=== PATIENT | female | born 2000 | race Two or more races ===

== ENCOUNTER 2025-08-27 12:45 | Inpatient (IN) | payer MEDICAID, OTHER ==
[~2025-08-27] VITALS: Ht 170.2 cm; Wt 77.2 kg
--- NOTE | 2025-08-27 13:25 | ED.PDOC ---
History of Present Illness HPI Comments Ms. Woodall is a 24 year old female with PMHx type1 diabetes mellitus and questionable atrial fibrillation, who presents today with chief complaint of lethargy. The patient states she is visiting the area and yesterday her insulin pump "" and she ran out of insulin. She reports that last night she had onset of weakness, nausea, vomiting, and generalized abdominal pain described as cramping, 7/10 intensity, without aggravating or relieving factors. Due persistence of symptoms she was taken by her aunt to the fire department and was subsequently brought by EMS. Per EMT, blood glucose on scene was 298, she was afebrile, tachycardic, with other vitals within normal range. On initial e valuation in the ED, the patient is alert, uncomfortable due to nausea and vomiting, afebrile, tahycardic, with other vitals within normal range. 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: Denies all PAPERHANGER APPRENTICE Hx Family History Family History: Reviewed,noncontributory to illness Social History Smoker: Non-Smoker Alcohol: Denies ETOH Use Drugs: Denies Drug Use Lives In: Home Constitutional: reports: fatigue, weakness; denies: chills, diaphoresis, fever, malaise, sweats EENTM: denies: blurred vision, double vision, mouth pain, nasal discharge, nose congestion Respiratory: denies: cough, hemoptysis, orthopnea, shortness of breath Cardiovascular: denies: chest pain, dizzy spells, diaphoresis, Dyspnea on exertion, edema, irregular heart beat, left arm pain, lightheadedness, palpitations Gastrointestinal: reports: abdominal pain, nausea, poor appetite, poor fluid intake, vomiting; denies: abdomen distended, blood streaked bowels, constipated, diarrhea, dysphagia, difficulty swallowing, hematemesis, melena, rectal bleeding Genitourinary: denies: burning, dysuria, flank pain, frequency, hematuria, incontinence, pain, urgency Neurological: reports: dizziness; denies: fainting, headache, numbness, paresthesia, pre-existing deficit, seizure, tremors, weakness Musculoskeletal: denies: back pain, joint pain, joint swelling, muscle pain, muscle stiffness, neck pain Physical Exam General Appearance: Moderate Distress HEENT: Pale Conjuntivae (L), Pale Conjuntivae (R), PERRL/EOMI, Pharynx Normal Neck: Full Range of Motion, Non-Tender, Normal Inspection Respiratory: Chest Non-Tender, Lungs Clear, No Accessory Muscle Use, No Respiratory Distress, Normal Breath Sounds Cardiovascular: No Edema, No Murmur, Normal Peripheral Pulses, Tachycardia Breast Exam: Deferred Gastrointestinal: Other (Abdomen nondistended, normal bowel sounds, soft, pain to generalized palpation no guarding or rebound tenderness, no palpable masses.) Genitalia: Deferred Pelvic: Deferred Rectal: Deferred Extremities: Normal capillary refill, Normal inspection, Normal range of motion, Non-tender, No pedal edema Neurologic: Alert Cerebellar Function: NOT DONE Reflexes: NOT DONE Skin: Normal Color Peripheral Pulses: 3+ dorsalis pedis (R), 3+ dorsalis pedis (L) Lymphatic: Other (No cervical adenopathy ) Was a procedure done? Was a procedure done?: No EKG EKG : Pulse Rate (adult): 115 [place]: Normal Cardiac Rhythm: ST Block: None ST: Nonsp Differential Dx Considerations may include: DKA, HHS, acute gastroenteritis, acute enterocolitis, appendicitis, cholecystitis, food poisoning, electrolyte imbalance, dehydration X-Ray, Labs, Meds, VS Vital Signs Date Time Temp Pulse Resp B/P (MAP) Pulse Ox O2 Delivery O2 Flow Rate FiO2 08/27/25 12:50 98.2 101 16 112/72 95 98.2 Lab Test 08/27/25 13:43 08/27/25 13:42 Range/Units White Blood Count 17.7 H 4.4-10.8 10^3/uL Red Blood Count 5.57 H 4.0-5.20 10^6/uL Hemoglobin 16.4 H 12.2-16.2 g/dL Hematocrit 52.3 H 36.0-46.0 % Mean Corpuscular Volume 94.0 80.0-100.0 fL Mean Corpuscular Hemoglobin 29.5 28.0-32.0 pg Mean Corpuscular Hemoglobin Concent 31.4 L 32.0-36.0 g/dL Red Cell Distribution Width 13.7 11.8-14.3 % Platelet Count 407 140-450 10^3/uL Mean Platelet Volume 9.1 6.9-10.8 fL Neutrophils (%) (Auto) 85.0 H 37.0-80.0 % Lymphocytes (%) (Auto) 12.1 10.0-50.0 % Monocytes (%) (Auto) 2.5 0.0-12.0 % Eosinophils (%) (Auto) 0.0 0.0-7.0 % Basophils (%) (Auto) 0.4 0.0-2.0 % Neutrophils # (Auto) 15.0 H 1.6-8.6 10 ^3/uL Lymphocytes # (Auto) 2.1 0.4-5.4 10 ^3/uL Monocytes # (Auto) 0.4 0-1.3 10 ^3/uL Eosinophils # (Auto) 0 0-0.8 10 ^3/uL Basophils # (Auto) 0.1 0-0.2 10 ^3/uL Nucleated Red Blood Cells 0.1 % Sodium Level 136 136-145 mmol/L Potassium Level 5.8 *H 3.5-5.1 mmol/L Chloride Level 103 98-107 mmol/L Carbon Dioxide Level < 10 *L 20-31 mmol/L Anion Gap 23.13041 H 5-15 Blood Urea Nitrogen 14 9-23 mg/dL Creatinine 0.91 0.550-1.02 mg/dL Glomerular Filtration Rate Calc 90 >90 mL/min BUN/Creatinine Ratio 15.4 10.0-20.0 Serum Glucose 447 *H 74-106 mg/dL Calcium Level 9.9 8.7-10.4 mg/dL Beta-Hydroxybutyric Acid Pending Blood Gas Specimen Type Venous Blood Gas Sample Site Other Blood Gas Patient Temperature 37.0 Arterial Blood Date Drawn Sanjay Test N/a Venous Blood pH 7.118 *L 7.320-7.430 Venous Blood pCO2 at Patient Temp 27.9 L 38.0-54.0 mmHg Venous Blood pO2 at Patient Temp 41.3 23.0-48.0 mmHg Venous Blood HCO3 8.8 L 22.0-29.0 mmol/L Venous Blood Base Excess -19.1 L -2.0-3.0 mmol/L Blood Gas Modality Room air FiO2 % 21.0 Blood Gas Critical Value Read Back Yes Blood Gas Notified Whom Dr. ac Blood Gas Notified Time [id number] Blood Gas Notified By Conrado dwyer, tabby Current Medications Medications (Trade) Dose Ordered Sig/Vasile Route Start Time Stop Time Status Last Admin Sodium Chloride 1,000 ml @ 1,000 mls/hr Q1H ONCE IV 08/27/25 13:15 08/27/25 14:14 DC 08/27/25 13:38 Time of 1ST Reevaluation: 14:39 Reevaluation 1ST: Improved Patient Education/Counseling: Diagnosis, Treatment Family Education/Counseling: No Family Present Comments The patient presented today BIBA due to lethargy secondary running out of insulin yesterday On initial evaluation, she is oriented, uncomfortable due to nausea/vomiting, afebrile and tachycardic. Other vitals are within normal range. Physical exam is positive for generalized abdominal pain on abdominal palpation. EKG shows sinus tachycardia CBC is significant for leukocytosis and signs of hemoconcentration likely reactive and associated with dehydration, BMP shows potassium 5.8. carbon dioxide is < 10, anion gap is elevated at 23, and serum glucose is 447. Beta hydroxybutyric acid is pending The patient has been started on NS 1000 cc bolus, Zofran 4 mg IV, and IV insulin drip She will be admitted for further monitoring and treatment of DKA. SEPSIS Sepsis Screen Physician Orders Urinalysis (08/27/25 13:07) Beta-Hydroxybutyrate (08/27/25 13:07) Venous Blood Gas (08/27/25 13:07) Drug Screen (08/27/25 13:21) Electrocardigram (08/27/25 13:22) Insulin Drip Protocol (08/27/25 ) Sodium Chloride 0.9% (08/27/25 14:45) Sodium Chloride 0.9% (08/27/25 18:45) Sodium Chloride 0.9% (08/27/25 20:45) Insulin Drip 100 Unit/100ml (Myxredlin 1 (08/27/25 14:45) Dextrose 50% Syringe (08/27/25 14:45) Glucose Blood (Accu-Chek Comfort Curve T (08/27/25 15:00) Phosphorus (08/27/25 14:31) Magnesium (08/27/25 14:31) Basic Metabolic Panel (08/27/25 14:31) Basic Metabolic Panel (08/27/25 20:31) Basic Metabolic Panel (08/28/25 02:31) Basic Metabolic Panel (08/28/25 08:31) Neurological Assessment (08/27/25 14:31) Vs/Hemodynamics .PER UNIT PROTOCOL (08/27/25 14:31) Insulin Lantus (Glargine) (Lantus) (08/27/25 14:45) Insulin Lantus (Glargine) (Lantus) (08/28/25 10:00) Vital Signs Date Time Temp Pulse Resp B/P (MAP) Pulse Ox O2 Delivery O2 Flow Rate FiO2 08/27/25 12:50 98.2 101 16 112/72 95 98.2 Laboratory Tests Test 08/27/25 13:43 White Blood Count 17.7 10^3/uL (4.4-10.8) H Medications Medications Dose Ordered Sig/Vasile Route Start Time Stop Time Status Last Admin Dose Admin Sodium Chloride 1,000 ml @ 1,000 mls/hr Q1H ONCE IV 08/27/25 13:15 08/27/25 14:14 DC 08/27/25 13:38 Departure 1 Departure Time of Disposition: 14:50 Impression: Primary Impression: DKA (diabetic ketoacidosis) Disposition: 30 STILL A PATIENT Admit to: ICU Condition: Stable Critical Care Note Critical Care Time?: No Stability Stability form required: HIREN Noyola RESIDENT Aug 27, 2025 13:25
[2025-08-27] MEDS: SODIUM CHLORIDE 0.9% 1,000 ML IV ONE ×3 (13:38→23:22)
[2025-08-27 13:56] LABS: Hematocrit 52.3 % (36.0-46.0); Hemoglobin 16.4 g/dL (12.2-16.2); Mean Corpuscular Hemoglobin 29.5 pg (28.0-32.0); Mean Corpuscular Volume 94.0 fL (80.0-100.0); Nucleated Red Blood Cells % 0.1 %
[2025-08-27 14:02] LABS: Chloride 103 mmol/L (98-107)
[2025-08-27 14:03] LABS: Anion Gap 23.00001 (5-15); Calcium 9.9 mg/dL (8.7-10.4)
[2025-08-27 14:14] LABS: Sodium 136 mmol/L (136-145)
[2025-08-27 14:20] LABS: Carbon Dioxide < 10 mmol/L (20-31); Glucose 447 mg/dL (74-106); Potassium 5.8 mmol/L (3.5-5.1)
[2025-08-27 14:21] LABS: BUN/Creatinine Ratio 15.4 (10.0-20.0); Blood Urea Nitrogen 14 mg/dL (9-23)
[2025-08-27] MEDS ORDERED: DEXTROSE (50%) 50ML SYRG IV PRN (14:45)
[2025-08-27 15:30] VITALS: PULSE 113; RESP 30; O2SAT 95
[2025-08-27 15:36] LABS: Magnesium 1.7 mg/dL (1.6-2.6)
[2025-08-27 15:46] LABS: Chloride 106 mmol/L (98-107); Sodium 139 mmol/L (136-145)
[2025-08-27 15:47] LABS: Calcium 9.6 mg/dL (8.7-10.4)
[2025-08-27 15:52] LABS: BUN/Creatinine Ratio 17.3 (10.0-20.0); Blood Urea Nitrogen 14 mg/dL (9-23)
[2025-08-27 15:58] LABS: Potassium 5.5 mmol/L (3.5-5.1)
[2025-08-27 16:00] LABS: Anion Gap 23.00001 (5-15)
[2025-08-27 16:03] LABS: Carbon Dioxide < 10 mmol/L (20-31); Glucose 425 mg/dL (74-106)
[2025-08-27] MEDS: INSULIN LANTUS (GLARGINE) 1 /0.01ml (100units/ml) SC ONE (16:30)
[2025-08-27] MEDS: SODIUM CHLORIDE 0.9% 1,000 ML IV SCH ×3 (16:30→20:45)
[2025-08-27] MEDS: ONDANSETRON HCL 4 MG/2 ML VIAL IV ONE ×2 (16:30→17:26)
[2025-08-27] MEDS: ACCU-CHEK COMFORT CURVE STRIP VI SCH (16:30)
[2025-08-27] MEDS: INSULIN DRIP 100 UNIT/100ML 100 ML IV SCH (16:31)
[2025-08-27] MEDS ORDERED: ACETAMINOPHEN 325 MG TAB PO PRN (16:45)
[2025-08-27] MEDS ORDERED: METOCLOPRAMIDE HCL 5MG/ml INJ 2ml VIAL IV PRN (16:45)
--- NOTE | 2025-08-27 17:02 | DVHHPRES ---
History of Present Illness Resident Creating Document: JESSE JEAN BAPTISTE RESIDENT History of Present Illness This is a 24-year-old female with past medical history of type 1 diabetes mellitus with an insulin pump, questionable atrial fibrillation who presented to the ED with chief complaint of lethargy associated with acute abdominal pain. Patient reports that she is visiting this area and yesterday ran out of insulin for her pump and has not been able to refill the insulin pump since then. Patient reports that since last night she started feeling weak with a acute abdominal pain which is diffuse in nature associated with nausea and several episodes of vomiting. The patient described the pain as a cramping pain rated as 10/10 on the pain scale diffusely in nature in the periumbilical region with no specific pattern of radiation. Patient stated that has not been able to tolerate any foods due to persistent nausea and vomiting. Upon admission in the ED, initial WBC was 17.7, hemoglobin 16.4 and platelets 407 which could be due to severe dehydration, blood glucose was initially 425 with an elevated anion gap at 23. Blood gas showed severe metabolic acidosis with elevated anion gap and elevated beta hydroxybutyric acid consistent with acute DKA. Patient will be started insulin drip, IV fluids, monitor potassium and other electrolytes closely. We will admit the patient for further assessment and management. Home medications: Patient reports has insulin pump and refill it with insulin when needed. Denies additional medications Surgeries: For C-sections, tonsillectomy and states she has a pacemaker. Allergies: None Social history: Smokes cigarettes and marijuana but denies any additional drug consumption and no alcohol Endocrine: Diabetes (Type 1 diabetes mellitus using insulin pump) Past Surgical History: Family History: None Smoke: No ALCOHOL: none Drugs: None Lives: with Family Domestic Violence: Neg Review of Systems Constitutional: Yes: Chills, Weakness, Malaise; No: Fever, Sweats, Other Eyes: No: Pain, Vision change, Conjunctivae inflammation, Eyelid inflammation, Other, Redness ENT: No: Ear pain, Ear discharge, Nose pain, Nose discharge, Nose congestion, Mouth pain, Mouth swelling, Throat pain, Throat swelling, Other Respiratory: No: Cough, Dry, Shortness of breath, SOB with excertion, Wheezing, Hemoptysis, Pleuritic Pain, Sputum, Wheezing, Other Cardiovascular: No: Chest Pain, Palpitations, Orthopnea, Paroxysmal Noc. Dyspnea, Edema, Lt Headedness, Other Gastrointestinal: Nausea, Vomiting, Abdominal Pain; No: Diarrhea, Constipation, Melena, Hematochezia, Other Genitourinary: No Dysuria, No Frequency, No Incontinence, No Hematuria, No Retention, No Other Musculoskeletal: No: other, neck pain, shoulder pain, arm pain, back pain, hand pain, leg pain, foot pain Skin: No: Rash, Lesions, Jaundice, Bruising, Other Neurological: No: Weakness, Numbness, Incoordination, Change in speech, Confusion, Seizures, Other Allergies: Coded Allergies: NO KNOWN ALLERGIES (Unverified , 08/27/25) Medications Current Medications Medications Dose Ordered Sig/Vasile Route Start Time Stop Time Status Last Admin Dose Admin Sodium Chloride 1,000 ml @ 500 mls/hr Q2H IV 08/27/25 14:45 08/27/25 18:44 08/27/25 16:30 500 MLS/HR Sodium Chloride 1,000 ml @ 250 mls/hr Q4H IV 08/27/25 18:45 08/27/25 20:44 Sodium Chloride 1,000 ml @ 150 mls/hr Q6H40M IV 08/27/25 20:45 Insulin Human (Reg)/Sodium Chloride 100 ml @ 0.5 mls/hr Q24H IV 08/27/25 14:45 08/27/25 16:31 6 MLS/HR Dextrose 50 ml UD PRN IV 08/27/25 14:45 Diagnostic Test (Pha) 1 strip Q90MIN 08/27/25 15:00 08/27/25 16:30 1 STRIP Insulin Glargine 15 units DAILY SC 08/28/25 10:00 Exam Vital Signs Vital Signs Date Time Temp Pulse Resp B/P (MAP) Pulse Ox O2 Delivery O2 Flow Rate FiO2 08/27/25 14:55 115 08/27/25 12:50 98.2 16 112/72 95 98.2 General Appearance: Alert, Oriented X3, Cooperative, severe distress HEENT: Atraumatic, PERRLA, EOMI, Other (Patient has dry mucous membranes with severe dehydration) Respiratory: Clear to auscultation, Normal air movement Cardiovascular: Regular rate, Normal S1, Normal S2, No murmurs Abdominal: Normal bowel sounds, Soft, Other (There is significant tenderness to palpation diffusely in the periumbilical area in whole abdomen.) Extremities: No clubbing, No cyanosis, No edema, Normal pulses, No tenderness/swelling Skin: No rashes, No breakdown, No significant lesion Neuro: Normal gait, Normal speech, Strength at 5/5 X4 ext, Normal tone, Sensation intact, Cranial nerves 3-12 NL, Reflexes 2+ Psych/Mental Status: Mental status NL, Mood NL Labs/Xrays Labs Test 08/27/25 15:48 08/27/25 15:25 08/27/25 13:43 08/27/25 13:42 Range/Units POC Glucose 363 H 70-106 mg/dl Sodium Level 139 136-145 mmol/L Potassium Level 5.5 H 3.5-5.1 mmol/L Chloride Level 106 98-107 mmol/L Carbon Dioxide Level < 10 *L 20-31 mmol/L Anion Gap 23.01899 H 5-15 Blood Urea Nitrogen 14 9-23 mg/dL Creatinine 0.81 0.550-1.02 mg/dL Glomerular Filtration Rate Calc 104 >90 mL/min BUN/Creatinine Ratio 17.3 10.0-20.0 Serum Glucose 425 *H 74-106 mg/dL Calcium Level 9.6 8.7-10.4 mg/dL White Blood Count 17.7 H 4.4-10.8 10^3/uL Red Blood Count 5.57 H 4.0-5.20 10^6/uL Hemoglobin 16.4 H 12.2-16.2 g/dL Hematocrit 52.3 H 36.0-46.0 % Mean Corpuscular Volume 94.0 80.0-100.0 fL Mean Corpuscular Hemoglobin 29.5 28.0-32.0 pg Mean Corpuscular Hemoglobin Concent 31.4 L 32.0-36.0 g/dL Red Cell Distribution Width 13.7 11.8-14.3 % Platelet Count 407 140-450 10^3/uL Mean Platelet Volume 9.1 6.9-10.8 fL Neutrophils (%) (Auto) 85.0 H 37.0-80.0 % Lymphocytes (%) (Auto) 12.1 10.0-50.0 % Monocytes (%) (Auto) 2.5 0.0-12.0 % Eosinophils (%) (Auto) 0.0 0.0-7.0 % Basophils (%) (Auto) 0.4 0.0-2.0 % Neutrophils # (Auto) 15.0 H 1.6-8.6 10 ^3/uL Lymphocytes # (Auto) 2.1 0.4-5.4 10 ^3/uL Monocytes # (Auto) 0.4 0-1.3 10 ^3/uL Eosinophils # (Auto) 0 0-0.8 10 ^3/uL Basophils # (Auto) 0.1 0-0.2 10 ^3/uL Nucleated Red Blood Cells 0.1 % Phosphorus Level 4.1 2.4-5.1 mg/dL Magnesium Level 1.7 1.6-2.6 mg/dL Beta-Hydroxybutyric Acid > 4.500 H < 0.4 mmol/L Blood Gas Specimen Type Venous Blood Gas Sample Site Other Blood Gas Patient Temperature 37.0 Arterial Blood Date Drawn [id number] Sanjay Test N/a Venous Blood pH 7.118 *L 7.320-7.430 Venous Blood pCO2 at Patient Temp 27.9 L 38.0-54.0 mmHg Venous Blood pO2 at Patient Temp 41.3 23.0-48.0 mmHg Venous Blood HCO3 8.8 L 22.0-29.0 mmol/L Venous Blood Base Excess -19.1 L -2.0-3.0 mmol/L Blood Gas Modality Room air FiO2 % 21.0 Blood Gas Critical Value Read Back Yes Blood Gas Notified Whom Dr. ac Blood Gas Notified Time [id number] Blood Gas Notified By Conardo dwyer rrt SEPSIS Sepsis Screen Date sepsis recognized/suspect: Aug 27, 2025 Time Sepsis recognized/suspect: 1249 Recent Procedure: No On Antibiotic Therapy: No Respiratory Rate >20: No Heart Rate >90: Yes Temp<36 C (96.8 F) or >38.3 C: No SBP <90 or MAP <65 mmHG: No New Acute Mental Status Change: No Is the patient on CPAP, BIPAP,: No Physician Orders Urinalysis (08/27/25 13:07) Venous Blood Gas (08/27/25 13:07) Drug Screen (08/27/25 13:21) Electrocardigram (08/27/25 13:22) Insulin Drip Protocol (08/27/25 ) Sodium Chloride 0.9% (08/27/25 14:45) Sodium Chloride 0.9% (08/27/25 18:45) Sodium Chloride 0.9% (08/27/25 20:45) Insulin Drip 100 Unit/100ml (Myxredlin 1 (08/27/25 14:45) Dextrose 50% Syringe (08/27/25 14:45) Glucose Blood (Accu-Chek Comfort Curve T (08/27/25 15:00) Basic Metabolic Panel (08/27/25 20:31) Basic Metabolic Panel (08/28/25 02:31) Basic Metabolic Panel (08/28/25 08:31) Neurological Assessment (08/27/25 14:31) Vs/Hemodynamics .PER UNIT PROTOCOL (08/27/25 14:31) Insulin Lantus (Glargine) (Lantus) (08/28/25 10:00) Admit (08/27/25 16:41) Code Status (08/27/25 16:41) Vital Signs .PER UNIT PROTOCOL (08/27/25 16:41) Review Orders With Adm.Md (08/27/25 16:41) Encourage Activity As Tolerate (08/27/25 16:41) Npo (Nothing By Mouth) Diet (08/27/25 Dinner) Metoclopramide Injection (Reglan Injecti (08/27/25 16:45) Acetaminophen Tablet (Tylenol Tablet) (08/27/25 16:45) Notify Md Of Changes From Base (08/27/25 16:41) Advance Directive (08/27/25 16:41) Basic Metabolic Panel (08/28/25 04:00) Urinalysis (08/27/25 16:41) Complete Blood Count (08/28/25 04:00) Lipid Panel (08/27/25 16:41) Patient Condition (08/27/25 16:41) Allergies (08/27/25 16:41) Drug Screen (08/27/25 16:41) Hemoglobin A1c (08/27/25 16:41) Vital Signs Date Time Temp Pulse Resp B/P (MAP) Pulse Ox O2 Delivery O2 Flow Rate FiO2 08/27/25 14:55 115 08/27/25 12:50 98.2 101 16 112/72 95 98.2 Laboratory Tests Test 08/27/25 13:43 White Blood Count 17.7 10^3/uL (4.4-10.8) H Medications Medications Dose Ordered Sig/Vasile Route Start Time Stop Time Status Last Admin Dose Admin Diagnostic Test (Pha) 1 strip Q90MIN 08/27/25 15:00 08/27/25 16:30 1 STRIP Insulin Glargine 15 units ONCE ONCE SC 08/27/25 14:45 08/27/25 14:46 DC 08/27/25 16:30 15 UNITS Insulin Human (Reg)/Sodium Chloride 100 ml @ 0.5 mls/hr Q24H IV 08/27/25 14:45 08/27/25 16:31 6 MLS/HR Sodium Chloride 1,000 ml @ 500 mls/hr Q2H IV 08/27/25 14:45 08/27/25 18:44 08/27/25 16:30 500 MLS/HR Sodium Chloride 1,000 ml @ 1,000 mls/hr Q1H ONCE IV 08/27/25 13:15 08/27/25 14:14 DC 08/27/25 13:38 1,000 MLS/HR Assessment/Plan Assessment/Plan Assessment/plan Acute abdominal pain likely due to acute DKA Acute diabetic ketoacidosis Acute leukocytosis and polycythemia likely in the setting of acute severe dehydration Acute severe dehydration Type 1 diabetes mellitus uncontrolled with insulin pump History of paroxysmal atrial fibrillation? History of pacemaker placement? Plan -1 L of IV fluids were given in the 1st hour, we will give 2 L at this time -start insulin drip per DKA protocol -after IV bolus fluids, start NS 0.9% and 250 cc/hour -we will monitor corrected sodium levels to determine changing IV fluids. We will monitor electrolytes closely including potassium -patient has severe metabolic acidosis with elevated anion gap 23 -initial potassium level was elevated, currently 5.5. We will start repleting potassium once it goes below 5 -place the patient NPO -pain medications PRN -ordered EKG -admitted to ICU/[facility] Goals of care discussed with the patient and boyfriend at bedside, full code Plan discussed with Dr. Justice critical care time 45 mins Plan discussed with: Patient, Other (boyfriend) My Orders Orders - JESSE JEAN BAPTISTE Procedure Category Date Status Time Admit ADMIT 08/27/25 Transmitted 16:41 Code Status CODE 08/27/25 Transmitted 16:41 Vital Signs [facility] 08/27/25 Transmitted 16:41 Review Orders With [facility] 08/27/25 Transmitted Adm. 16:41 Encourage Activity As [facility] 08/27/25 Transmitted Tolerate 16:41 Npo (Nothing By DIET 08/27/25 Transmitted Mouth) Diet Dinner Metoclopramide [facility] 08/27/25 Transmitted Injection (Reglan 16:45 Acetaminophen Tablet [facility] 08/27/25 Transmitted (Tylenol Tablet) 16:45 Notify Of Changes [facility] 08/27/25 Transmitted From Base 16:41 Advance Directive [facility] 08/27/25 Transmitted 16:41 Basic Metabolic Panel LAB 08/28/25 Verified 04:00 Urinalysis LAB 08/27/25 Transmitted 16:41 Complete Blood Count LAB 08/28/25 Verified 04:00 Lipid Panel LAB 08/27/25 Transmitted 16:41 Patient Condition ORDERS 08/27/25 Transmitted 16:41 Allergies [facility] 08/27/25 Transmitted 16:41 Drug Screen LAB 08/27/25 Transmitted 16:41 Hemoglobin A1c LAB 08/27/25 Transmitted 16:41 Date of Service: Aug 27, 2025 Billing Provider: PAUL JUSTICE MD Common Visit Codes: [id number] CARE 30-74 MIN JESSE JEAN BAPTISTE RESIDENT Aug 27, 2025 17:02 PAUL JUSTICE MD Aug 27, 2025 17:35
[2025-08-27 17:06] LABS: Triglycerides 124 mg/dL (< 150)
[2025-08-27 17:09] LABS: Cholesterol 218 mg/dL (< 200); HDL Cholesterol 71 mg/dL (40-59)
--- NOTE | 2025-08-27 17:48 | DVH ---
CHEST RADIOGRAPH Indication: Eval lung parenchyma and supposed pacemaker Technique: Single frontal view of the chest was obtained Comparison: None FINDINGS: Lines and Tubes: None Lungs: No focal consolidation. Pleura: No effusion. No pneumothorax. Cardiomediastinal contours: Unremarkable Bones: No acute osseous abnormality. IMPRESSION: 1. No acute cardiopulmonary disease.
[2025-08-27 19:01] LABS: Urine Protein, UAD TRACE (Negative)
[2025-08-27 19:07] LABS: Cannabinoid Screen, Urine Pos (NEGATIVE)
[2025-08-27 19:10] LABS: Amphetamine Screen, Urine Neg (NEGATIVE); Barbiturate Scree,Urine Neg (NEGATIVE); Benzodiazephine Screen, Urine Neg (NEGATIVE); Cocaine Screen, Urine Neg (NEGATIVE); Opiate Scree,Urine Neg (NEGATIVE); Phencyclidine Screen, Urine Neg (NEGATIVE)
[2025-08-27 20:59] LABS: Potassium 4.7 mmol/L (3.5-5.1); Sodium 143 mmol/L (136-145)
[2025-08-27 21:00] LABS: Anion Gap 20 (5-15)
[2025-08-27 21:05] LABS: BUN/Creatinine Ratio 13.3 (10.0-20.0); Blood Urea Nitrogen 11 mg/dL (9-23)
[2025-08-27 21:23] LABS: Calcium 8.5 mg/dL (8.7-10.4); Carbon Dioxide 11 mmol/L (20-31); Chloride 112 mmol/L (98-107); Glucose 182 mg/dL (74-106)
[2025-08-27] MEDS ORDERED: SODIUM CHLORIDE 0.9% 1,000 ML IV ONE (22:45)
[2025-08-27 23:10] VITALS: PULSE 100; RESP 20; O2SAT 98
[2025-08-27] MEDS: D5W/SOD CHLO 0.9% 1,000 ML IV ONE (23:22)
[2025-08-28] MEDS: D5W/SOD CHL 0.45%/KCL 20MEQ 1,000 ML IV SCH (01:45)
--- NOTE | 2025-08-28 02:20 | ECG ---
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
[2025-08-28 03:04] LABS: Potassium 4.0 mmol/L (3.5-5.1); Sodium 141 mmol/L (136-145)
[2025-08-28 03:05] LABS: Anion Gap 18 (5-15); Chloride 111 mmol/L (98-107)
[2025-08-28 03:11] LABS: BUN/Creatinine Ratio 8.1 (10.0-20.0)
[2025-08-28 03:12] LABS: Blood Urea Nitrogen 5 mg/dL (9-23); Calcium 7.9 mg/dL (8.7-10.4); Carbon Dioxide 12 mmol/L (20-31); Glucose 174 mg/dL (74-106)
[2025-08-28 03:37] VITALS: PULSE 93; RESP 15; O2SAT 100
[2025-08-28 06:11] LABS: Hematocrit 39.8 % (36.0-46.0); Hemoglobin 13.2 g/dL (12.2-16.2); Mean Corpuscular Hemoglobin 29.7 pg (28.0-32.0); Mean Corpuscular Volume 89.5 fL (80.0-100.0); Nucleated Red Blood Cells % 0.1 %
[2025-08-28 06:23] LABS: Potassium 3.8 mmol/L (3.5-5.1); Sodium 140 mmol/L (136-145)
[2025-08-28 06:24] LABS: Anion Gap 15 (5-15)
[2025-08-28 06:28] LABS: Calcium 8.1 mg/dL (8.7-10.4); Carbon Dioxide 13 mmol/L (20-31); Chloride 112 mmol/L (98-107)
[2025-08-28 06:30] LABS: BUN/Creatinine Ratio 8.9 (10.0-20.0); Blood Urea Nitrogen < 5 mg/dL (9-23); Glucose 189 mg/dL (74-106)
[2025-08-28 08:00] VITALS: PULSE 86; RESP 22; O2SAT 98
[2025-08-28] MEDS: INSULIN LANTUS (GLARGINE) 1 /0.01ml (100units/ml) SC SCH (10:15)
[2025-08-28 11:08] LABS: Anion Gap 11 (5-15)
[2025-08-28 11:13] LABS: BUN/Creatinine Ratio 12.0 (10.0-20.0)
[2025-08-28] MEDS ORDERED: HYDROcodone-ACET 5/325MG TAB PO PRN (11:30)
[2025-08-28] MEDS ORDERED: DEXTROSE (50%) 50ML SYRG IV PRN (11:30)
[2025-08-28] MEDS ORDERED: ACETAMINOPHEN 500 MG TAB or CAP PO PRN (11:30)
[2025-08-28] MEDS ORDERED: ONDANSETRON HCL 4 MG/2 ML VIAL IV PRN (11:30)
[2025-08-28 11:31] LABS: Blood Urea Nitrogen 6 mg/dL (9-23); Calcium 7.8 mg/dL (8.7-10.4); Carbon Dioxide 17 mmol/L (20-31); Chloride 113 mmol/L (98-107); Glucose 126 mg/dL (74-106); Potassium 3.5 mmol/L (3.5-5.1); Sodium 141 mmol/L (136-145)
[2025-08-28] MEDS: ACCU-CHEK COMFORT CURVE STRIP VI SCH (12:02)
[2025-08-28] MEDS: InsuLIN REG 1unit/0.01ml Soln (100units/ml) SC SCH (12:02)
[2025-08-28 13:25] VITALS: RESP 18; O2SAT 98
[2025-08-28 13:28] VITALS: BP 124/73; PULSE 87; RESP 20; TEMP 98.7; O2SAT 98
--- NOTE | 2025-08-28 15:37 | DVHPN2 ---
Subjective Patient denies any symptoms at this time. Reviewed: Care Plan, H&P, Labs, Medications Changes from previous H/P or p: No Changes General: Per HPI Eyes: No Pain, No Vision change, No Conjunctivae inflammation, No Eyelid inflammation, No Other, No Redness ENT: No Ear pain, No Ear discharge, No Nose pain, No Nose discharge, No Nose congestion, No Mouth pain, No Mouth swelling, No Throat pain, No Throat swelling, No Other Cardiovascular: No Chest Pain, No Palpitations, No Orthopnea, No Paroxysmal Noc. Dyspnea, No Edema, No Lt Headedness, No Other Respiratory: No Cough, No Dry, No Shortness of breath, No SOB with excertion, No Wheezing, No Hemoptysis, No Pleuritic Pain, No Sputum, No Other Gastrointestinal: Nausea, Vomiting, Abdominal Pain; No Diarrhea, No Constipation, No Melena, No Hematochezia, No Other Genitourinary: No Dysuria, No Frequency, No Incontinence, No Hematuria, No Retention, No Other Musculoskeletal: No other, No neck pain, No shoulder pain, No arm pain, No back pain, No hand pain, No leg pain, No foot pain Skin: No Rash, No Lesions, No Jaundice, No Bruising, No Other Objective Vitals Vital Signs Date Time Temp Pulse Resp B/P (MAP) Pulse Ox O2 Delivery O2 Flow Rate FiO2 08/28/25 13:28 98.7 87 20 124/73 (90) 98 98.7 08/28/25 13:25 Room Air* 0 21 Intake/Output Intake and Output 08/28/25 07:00 Intake Total 4925 ml Balance 4925 ml Intake IV Total 4925 ml General Appearance: Alert, Oriented X3, Cooperative, No acute distress HEENT: Atraumatic, PERRLA Neck: Carotid [place], Enlarged Thyroid Lungs: Clear to auscultation, Normal air movement Cardiovascular: Normal S1, Normal S2 Abdomen: Normal bowel sounds, Soft, No tenderness, No hepatospenomegaly Genitourinary: No Apparent Abnormalities Musculoskeletal: Normal sensory function, Normal motor function Neuro: Normal gait, Normal speech Skin: Dry, Intact Psych/Mental Status: Mental status NL, Mood NL Medications Current Medications Medications Dose Ordered Sig/Vasile Route Start Time Stop Time Status Last Admin Dose Admin Insulin Glargine 15 units DAILY SC 08/28/25 10:00 08/28/25 10:15 15 UNITS Metoclopramide HCl 10 mg Q4HP PRN IV 08/27/25 16:45 Potassium Chloride/Dextrose/ Sod Cl 1,000 ml @ 150 mls/hr Q6H40M IV 08/28/25 01:45 08/28/25 15:20 150 MLS/HR Diagnostic Test (Pha) 1 strip ACHS 08/28/25 11:30 08/28/25 12:02 1 STRIP Insulin Human Regular HS SC 08/28/25 22:00 Insulin Human Regular AC SC 08/28/25 11:30 Dextrose 50 ml UD PRN IV 08/28/25 11:30 Acetaminophen/ Hydrocodone Bitart 1 tab Q6HPRN PRN PO 08/28/25 11:30 Acetaminophen 500 mg Q8HP PRN PO 08/28/25 11:30 Ondansetron HCl 4 mg Q6HP PRN IV 08/28/25 11:30 Laboratory Results Laboratory Tests 08/28/25 05:28 08/28/25 10:15 Chemistry Test 08/27/25 20:42 08/28/25 02:35 08/28/25 05:28 08/28/25 10:15 Calcium Level 8.5 mg/dL (8.7-10.4) L 7.9 mg/dL (8.7-10.4) L 8.1 mg/dL (8.7-10.4) L 7.8 mg/dL (8.7-10.4) L Urinalysis Test 08/27/25 18:20 Urine Color Colorless (Yellow) Urine Clarity Clear (Clear) Urine pH 5.5 (5.0-9.0) Urine Specific [place] 1.021 (1.001-1.035) Urine Protein Trace (Negative) H Urine Ketones 4+ (Negative) H Urine Blood Negative /uL (Negative) Urine Nitrite Negative (Negative) Urine Bilirubin Negative (Negative) Urine Urobilinogen Normal mg/dL (Negative) Urine Leukocyte Esterase Negative /uL (Negative) Urine RBC <1 /hpf (0 - 4) Urine Microscopic WBC 1 /HPF (0-5) Urine Squamous Epithelial Cells Few /hpf (<5) Urine Bacteria None seen /hpf (None Seen) Urine Glucose 4+ mg/dL (Normal) H Labs and/or images reviewed: Image(s) reviewed by me Assessment/Plan Assessment/Plan Impression: -DKA -leukocytosis, probable sirs -hyperkalemia Plan: -continue fusion with D5 half NS with 20 of potassium chloride at 150 mL/hour -continue regular insulin sliding scale, Lantus -antiemetics -advanced to consistent carbohydrate -repeat labs in a.m. Total time spent with patient discussing and formulating plan of care: 35 minutes. This medical document was created using an electronic medical record system with [employer] dictation system. Although this document has been carefully reviewed, there may still be some phonetic and typographical errors. These areas are purely typographical due to imperfections of the software programs, and do not reflect any compromise in the patient's medical care. Plan discussed with: Patient, Other (Rn) My Orders Orders - BEENA COOL NP Procedure Category Date Status Time Glucose Blood PHA 08/28/25 In Process (Accu-Chek Comfort 11:30 Insulin R (Human) PHA 08/28/25 In Process (Insulin R) 22:00 Insulin R (Human) PHA 08/28/25 In Process (Insulin R) 11:30 Dextrose 50% Syringe PHA 08/28/25 In Process 11:30 Consistent DIET 08/28/25 Transmitted Carb(Ccho)Diabetes Lunch Transfer Orders XFER 08/28/25 Transmitted 11:23 Hydrocodone-Acet PHA 08/28/25 In Process 5/325mg Tab ([place] 11:30 Acetaminophen Tab Or PHA 08/28/25 In Process Cap (Tylenol Tablet 11:30 Ondansetron Hcl PHA 08/28/25 In Process (Zofran) 11:30 Basic Metabolic Panel LAB 08/29/25 Verified 04:00 Date of Service: Aug 28, 2025 Billing Provider: BEENA COOL NP Common Visit Codes: [id number] INP/OBS CARE(HIGH) BEENA COOL NP Aug 28, 2025 15:37
[2025-08-28] MEDS ORDERED: InsuLIN REG 1unit/0.01ml Soln (100units/ml) SC SCH (22:00)
== END 2025-08-28 15:55 | disposition left against medical advice (07) | DRG 420 ==
LOC: EDBD 12:45 → ER 12:45 → OVERFLOW 16:41 → TELE-EAST 08-28 13:18 → EAST 08-28 15:12
PROVIDERS: ADMIT Nurse Practitioner Acute Care; ATTEND Nurse Practitioner Acute Care
DX: E11.10 Type 2 diabetes mellitus with ketoacidosis without coma (principal); D75.1 Secondary polycythemia; E86.0 Dehydration; I48.91 Unspecified atrial fibrillation; E87.5 Hyperkalemia; R65.10 Systemic inflammatory response syndrome (SIRS) of non-infectious origin without acute organ dysfunction; Z53.29 Procedure and treatment not carried out because of patient's decision for other reasons; Z96.41 Presence of insulin pump (external) (internal); Z79.899 Other long term (current) drug therapy
CPT/HCPCS: 36415; 36600; 71045; 80048; 80061; 80307; 81001; 82010; 82805; 82962; 83036; 83735; 84100; 85025; 93005; 96365; 96372; G0378; J1815; J2405